=== PATIENT | male | born 1955 | race Caucasian/White ===

== ENCOUNTER 2018-07-25 08:26 | Day surgery (SDC) | payer MEDICARE ==
[2018-07-25] MEDS ORDERED: Propofol 200 MG/20 ML SDV IV ONE (08:27)
[2018-07-25] MEDS ORDERED: Midazolam 1 MG/ML 2 ML SDV IV ONE (08:27)
[2018-07-25] MEDS ORDERED: Lactated Ringers 1,000 ML IV SCH (08:30)
--- NOTE | 2018-07-25 10:35 | PCM.OPNOTE ---
- General Post-Op/Procedure Note Date of Surgery/Procedure: 07/25/18 Operative Procedure(s): c scope Findings: cecal polyp diverticulosis Pre Op Diagnosis: hx of colon polyps Post-Op Diagnosis: cecal polyp. diverticulosis Anesthesia Technique: MAC Primary Surgeon: Joey No Anesthesia Provider: Ashleigh Smith Pathology: cecal polyp Complications: None Condition: Good Free Text/Narrative:: see dictation
--- NOTE | 2018-07-25 14:30 | OR ---
DATE OF OPERATION: 07/25/2018 SURGEON: Joey No MD PROCEDURE PERFORMED: Colonoscopy with cold forceps biopsy. PREOPERATIVE DIAGNOSIS: Personal history of colon polyps. POSTOPERATIVE DIAGNOSES: Cecal polyp and diverticulum of the descending colon. INDICATIONS FOR PROCEDURE: This is a 62-year-old white male who presents for followup scope. He has a personal history of colon polyps. DESCRIPTION OF OPERATION: After an excellent IV sedation was administered, digital rectal exam was performed. No marked abnormality was noted. Flexible colonoscope was inserted and advanced to the cecum. Prep was excellent. The following findings were noted. Ascending colon and the cecum, small hyperplastic-appearing lesion biopsied. Transverse colon, unremarkable. Descending colon, in the area of the splenic flexure, there was a single diverticulum that was noted. Sigmoid and rectum, unremarkable. Colon was deflated. Scope was removed. Results by letter. /[id number] /MODL
== END 2018-07-25 11:27 | disposition home or self-care (01) ==
LOC: FB.SDS 08:26
PROVIDERS: ATTEND Surgery
DX: Z12.11 Encounter for screening for malignant neoplasm of colon (principal); K57.30 Diverticulosis of large intestine without perforation or abscess without bleeding; K63.89 Other specified diseases of intestine; K21.9 Gastro-esophageal reflux disease without esophagitis; I25.10 Atherosclerotic heart disease of native coronary artery without angina pectoris; E78.00 Pure hypercholesterolemia, unspecified; F41.9 Anxiety disorder, unspecified; F32.9 Major depressive disorder, single episode, unspecified; C61 Malignant neoplasm of prostate; G47.33 Obstructive sleep apnea (adult) (pediatric); H35.52 Pigmentary retinal dystrophy; E66.9 Obesity, unspecified; Z68.41 Body mass index [BMI] 40.0-44.9, adult; Z88.8 Allergy status to other drugs, medicaments and biological substances; Z95.1 Presence of aortocoronary bypass graft; Z86.010 Personal history of colon polyps; Z79.82 Long term (current) use of aspirin; Z79.899 Other long term (current) drug therapy
CPT/HCPCS: 00811; 45380; 88305; J2250; J2704; J7120